=== PATIENT | female | born 1950 | race Caucasian/White ===

== ENCOUNTER 2019-07-18 06:34 | Day surgery (SDC) | payer OTHER ==
[~2019-07-18 06:34] MED LIST: AMOXICILLIN500 MG PO; BIAXIN500 MG PO; CARAFATE SU1 G/10 ML PO; ERYTHROMYCIN250 M1 PO; GAS RELIEF125 M1 PO; HYOSCYAMINE0.125 M1 SL; Mylicon 125MG PO; PEPCID AC20 MG PO; PROTONIX40 MG PO; QUESTRAN PACKET4 GM PO; ULTRACET PO
== END 2019-07-18 11:40 | disposition home or self-care (01) ==
LOC: AMB-ENDOS 06:34 → CIR.AMB 12:00
DX: D13.2 Benign neoplasm of duodenum (principal); K29.50 Unspecified chronic gastritis without bleeding

== ENCOUNTER 2021-06-03 08:27 | Day surgery (SDC) | payer OTHER | END 2021-06-03 13:05 | disposition home or self-care (01) | LOC: AMB-ENDOS 08:27 | PROVIDERS: ATTEND Surgery | DX: D13.1 Benign neoplasm of stomach (principal); K29.60 Other gastritis without bleeding; K44.9 Diaphragmatic hernia without obstruction or gangrene; Z20.822 Contact with and (suspected) exposure to COVID-19 ==